=== PATIENT | male | born 1955 | race Caucasian/White ===

== ENCOUNTER → 2019-08-03 | Outpatient (CLI) | payer OTHER ==
[~2019-08-03] MED LIST: INSULIN PUMP
== END ==
LOC: M.PC 07-29 09:10
DX: M51.36 Other intervertebral disc degeneration, lumbar region (principal); M47.816 Spondylosis without myelopathy or radiculopathy, lumbar region; M16.0 Bilateral primary osteoarthritis of hip; M50.30 Other cervical disc degeneration, unspecified cervical region; M47.812 Spondylosis without myelopathy or radiculopathy, cervical region

== ENCOUNTER → 2019-10-28 | Outpatient (CLI) | payer OTHER ==
[~2019-10-28] MED LIST changes: +BACLOFEN20 MG PO; +CHOLECALCIFEROL1 GM PO; +GLUCAGON EMERGEN1 MG INJECTION; +GLUCOSE4 GM PO; +METHOCARBAMOL750 MG PO; +MORPHINE SULFAT15 M3 PO; +NARCAN4 MG NARES; +PREGABALIN150 MG PO; +PROPRANOLOL 20M20 M1 PO; +PROVENTIL HFA6.7 G1 INH; +VOLTAREN GEL 1100 G1 TOP
== END ==
LOC: M.PC 11:00
DX: M51.36 Other intervertebral disc degeneration, lumbar region (principal); M47.816 Spondylosis without myelopathy or radiculopathy, lumbar region; M47.812 Spondylosis without myelopathy or radiculopathy, cervical region; M50.30 Other cervical disc degeneration, unspecified cervical region; Z79.899 Other long term (current) drug therapy

== ENCOUNTER → 2019-11-09 | Outpatient (CLI) | payer OTHER | LOC: M.PC 01:45 | DX: M51.36 Other intervertebral disc degeneration, lumbar region (principal); M50.30 Other cervical disc degeneration, unspecified cervical region; M47.812 Spondylosis without myelopathy or radiculopathy, cervical region; M47.816 Spondylosis without myelopathy or radiculopathy, lumbar region; M16.0 Bilateral primary osteoarthritis of hip; E11.9 Type 2 diabetes mellitus without complications; Z88.5 Allergy status to narcotic agent ==